=== PATIENT | female | born 1945 | race Caucasian/White ===

== ENCOUNTER → 2016-11-22 | Outpatient (CLI) | payer MEDICARE ==
[~2016-11-22] MED LIST: ALBUTEROL0.83 MG/ML NEB; ASPIRIN PO; DYAZIDE 37.5/251 CAP PO; LIPITOR40 MG PO; OXYGEN; SYNTHROID PO; ZOCOR PO
--- NOTE | ~2016-11-22 | CT57 ---
[facility] A Service of [facility] & [facility] RADIOLOGY TEXT RESULTS PATIENT: RITA ESTRADA LOCATION: [facility] : 49 UNIT #: [id number] AGE: [address]: Dakota Valles MD SEX: F ORDER DR: [id number] [place] [id number] O MR#: [id number] Acc #: [id number] NAME: RITA ESTRADA : 1945 SEX: F STUDY DATE/TIME: 11/22/2016 08:13 UNIT: SCT ROOM: STUDY DESCRIPTION: CT Chest Wo Cont Attending Physician: Dakota Valles M.D. Referring Physician: Dakota Valles M.D. Ordering Physician: Dakota Valles M.D. Primary Care Physician: Nelly Loza M.D. MEDICAL IMAGING REPORT This report is preliminary unless electronic signature is present. EXAM CT chest without contrast, 11/22/2016 08:13 hours HISTORY 71-year-old woman with history of COPD for followup of lung nodule. No current chest complaints. COMPARISON PET/CT 05/10/[address] 04/26/[address] lung cancer screening study 11/05/2015. TECHNIQUE Routine helical noncontrasted CT images were obtained from the thoracic inlet through the adrenal glands. Sagittal and coronal reconstructions were performed. Total exam DLP 340 mGy-cm. This CT exam was performed with one or more of the following radiation dose reduction techniques: automatic exposure control, adjustment of mA and/or kV according to patient size, and iterative reconstruction. FINDINGS Images through the thoracic inlet demonstrate no thyroid mass or supraclavicular adenopathy. Images through the chest demonstrate normal caliber aorta. There are partially calcified precarinal, subcarinal and right hilar nodes present consistent with old granulomatous change. There is no pathologic adenopathy. Aorta, pulmonary arteries, cardiac chambers and pericardium are normal. The esophagus is normal. The lungs again demonstrate extensive emphysematous change. In the anterior left upper lobe best seen on image 41 is a enlarging slightly irregular marginated noncalcified soft tissue nodule now measuring 1.7 x 1.0 cm, previously 1.0 x 0.7 cm on 05/10/2016 and 1.0 cm 04/26/2016. [facility] A Service of [facility] RADIOLOGY TEXT RESULTS PATIENT: RITA ESTRADA LOCATION: [facility] : 49 UNIT #: [id number] AGE: [address]: Dakota Valles MD SEX: F ORDER DR: This demonstrated minimal increased uptake on PET/CT of 05/10/2016, however the size was borderline for accurate PET assessment at this time. The continued increase raises concern for malignancy. Further evaluation is warranted. Consider CT-guided biopsy or repeat PET. There is calcified change at the major fissure in the left midlung, unchanged. There is no new left-sided nodule. There is a stable fairly well-circumscribed noncalcified soft tissue nodule the right lung base measuring 6.0 x 6.0 mm. No new nodules are seen. Limited views through the upper abdomen demonstrate a normal appearance to the visualized portions of the liver. The adrenal glands are normal. IMPRESSION 1. The left upper lobe irregularly marginated noncalcified soft tissue nodule continues to increase in size now measuring 1.7 x 1.0 cm, previously 1.0 x 0.7 cm on the PET/CT of 05/10/2016. This demonstrated only minimal increased PET activity but was borderline in size for accurate PET assessment at that at that time. Given the increase in size in the interval since April 2016, malignancy is a concern. Further evaluation is warranted. Consider repeat PET/CT or CT-guided biopsy. 2. Previously demonstrated right lower lobe nodule appears stable measuring 6.0 mm. No new nodules are seen. There is no adenopathy. STAT * RESULT Dictated by... Marleny Bull M.D. THIS IS AN ELECTRONICALLY VERIFIED REPORT Marleny Bull M.D. at 11/22/2016 1:34 PM EUNICE/maya TD: 11/22/2016 09:56 JOB #: [id number] MEDICAL IMAGING REPORT
== END | disposition home or self-care (01) ==
LOC: SCT 07:59
DX: R91.1 Solitary pulmonary nodule (principal)
CPT/HCPCS: 71250

== ENCOUNTER → 2016-11-25 | Day surgery (SDC) | payer OTHER ==
--- NOTE | ~2016-11-25 | OR ---
Unit #: [id number] #: [id number] Patient: RITA ESTRADA [id number] [address] [address] [id number] O MR#: [id number] NAME: RITA ESTRADA ROOM: Date of Procedure: 11/25/2016 Admission Date: 11/25/2016 Surgeon: Tomas Wray M.D. : 1945 Attending Physician: Tomas Wray M.D. Referring Physician: Tomas Wray M.D. Primary Care Physician: Nelly Loza M.D. OPERATIVE REPORT PROCEDURE PERFORMED Colonoscopy to cecum. INDICATIONS FOR PROCEDURE The patient with several first-degree family members with colon cancer. MEDICATION Monitored anesthesia. POSTOPERATIVE FINDINGS 1. Mild diverticulosis. 2. No polyps, masses, or colitis. 3. Good prep. PLAN Repeat colonoscopy in 3 to 5 years. DESCRIPTION OF PROCEDURE The patient was explained of the procedure, risks, and benefits along with risks and benefits of anesthesia. She was brought to the endoscopy room. Propofol anesthesia was given. Rectal exam was done, which was normal. Colonoscope was lubricated, passed up the rectum, advanced under direct vision all the way to cecum. Cecum was identified by ileocecal valve and appendiceal orifice. At this point, I started to pull the scope out carefully looking. No polyps, masses, or colitis were seen. Mucosa was normal and healthy. I retroflexed in the rectum. Internal hemorrhoids noted. Gently, the scope was pulled out. She tolerated it well. Dictated by... Kely Nicolas/isaiah TD: 11/26/2016 06:46 JOB #: [id number] Unit #: [id number] #: [id number] Patient: RITA ESTRADA OPERATIVE REPORT X Tomas Wray MD X PROCEDURE OPERATIVE NOTE
== END | disposition home or self-care (01) ==
LOC: COPS 08:21
DX: Z12.11 Encounter for screening for malignant neoplasm of colon (principal); K57.30 Diverticulosis of large intestine without perforation or abscess without bleeding; K64.8 Other hemorrhoids; K44.9 Diaphragmatic hernia without obstruction or gangrene; E03.9 Hypothyroidism, unspecified; I10 Essential (primary) hypertension; E78.5 Hyperlipidemia, unspecified; Z80.0 Family history of malignant neoplasm of digestive organs; Z90.710 Acquired absence of both cervix and uterus; Z98.890 Other specified postprocedural states; Z79.82 Long term (current) use of aspirin; Z79.899 Other long term (current) drug therapy; Z87.891 Personal history of nicotine dependence